=== PATIENT | female | born 1955 | race Asian ===

== ENCOUNTER 2017-04-04 06:12 | Day surgery (SDC) | payer OTHER ==
[~2017-04-04] VITALS: Ht 162.6 cm; Wt 65.8 kg
[2017-04-04 06:52] VITALS: BP 138/71
[2017-04-04 10:08] VITALS: BP 117/64
== END 2017-04-04 10:00 | disposition home or self-care (01) ==
LOC: DS 06:12 → OR 07:30 → GI 07:30 → DS 10:00
PROVIDERS: Internal Medicine Gastroenterology
PROC: 0DB68ZX Excision of Stomach, Via Natural or Artificial Opening Endoscopic, Diagnostic (ICD-10-PCS; principal; 2017-04-04 07:30)
PROC: 0DB58ZX Excision of Esophagus, Via Natural or Artificial Opening Endoscopic, Diagnostic (ICD-10-PCS; 2017-04-04 07:30)
PROC: 0DBP8ZZ Excision of Rectum, Via Natural or Artificial Opening Endoscopic (ICD-10-PCS; 2017-04-04 07:30)
DX: Z12.11 Encounter for screening for malignant neoplasm of colon (principal); K62.1 Rectal polyp; R10.13 Epigastric pain; Z85.038 Personal history of other malignant neoplasm of large intestine
CPT/HCPCS: 43235; 45378; J1200; J1610; J2250; J2310; J3010; J3490